=== PATIENT | male | born 1955 | race Caucasian/White ===

== ENCOUNTER 2016-06-21 11:56 | Inpatient (IN) | payer OTHER ==
[~2016-06-21] VITALS: Ht 172.7 cm; Wt 71.2 kg
--- NOTE | ~2016-06-21 | CON ---
[place], [place] REPORT OF CONSULTATION NAME: MILAGROS [facility]UNDO [id number] UNIT #: [id number] ROOM: 517 DOCTOR: ARLEY JACK MD BIRTHDATE: [birth year] DOS: 06/21/2016 CARDIOLOGY CONSULTATION REASON FOR CONSULTATION: Chest pain, syncope and dilated cardiomyopathy. HISTORY OF PRESENT ILLNESS: The patient is a 61-year-old man who does have at least a 10-year history of multiple drug abuse. He was first evaluated by [facility] in 2013 when he presented with atypical chest pain. A stress test was normal, but an echocardiogram showed mildly impaired left ventricular systolic function. The patient was lost to followup, but was recently hospitalized at [facility] in [place] with pneumonia. His respiratory panel was positive for influenza A H3. He was treated with Tamiflu, but states that he has never felt well since then. He has felt weak and has had a persistent cough. Also, since then he has had several episodes of near syncope. He states that this occurs, especially when he is withdrawing from heroin. He will notice a cramping abdominal sensation which radiates into his chest associated with weakness and severe dyspnea. He will feel like he could pass out and his vision may actually get dim, but he has not yet passed out completely. If he sits down, the symptoms will pass after a while. He denies that this is associated with palpitations, but he does feel heavy in his chest whenever these episodes occur. The patient's most recent echocardiogram done 04/04/2016 did show an ejection fraction estimated to be between 35% and 40% with normal left ventricular wall thickness. He had moderate mitral insufficiency and mild aortic insufficiency, paradoxic septal motion was seen. There is a question of a small patent foramen ovale with right to left shunting. The right ventricular systolic pressure was estimated to be normal, however. The patient has decided that he would like to become clean of the drugs of abuse and therefore came in to the hospital under the [facility]; however, upon admission, he did mention that he was having near syncopal episodes and therefore, Cardiology was requested to assist. PAST MEDICAL HISTORY: Includes: 1. Hypertension. 2. Hyperlipidemia. 3. Atypical chest pain prompting admission 02/2014, treadmill nuclear myocardial perfusion study 03/08/2014 showed ejection fraction 51% with normal perfusion. 4. Echocardiogram on 02/2014, ejection fraction 45%-50% with mildly elevated right ventricular systolic pressures and mild left ventricular hypertrophy. 5. Hospitalization on 04/03/2016 with influenza pneumonia. The patient was also felt to have heart failure due to combined systolic and diastolic dysfunction. ProBNP 7260. 6. Echocardiogram 03/2016, normal left ventricular size and thickness with global hypokinesis and ejection fraction 35%-40%, abnormal septal motion noted, moderate mitral insufficiency with mild aortic insufficiency present. Possible [place], [place] REPORT OF CONSULTATION NAME: MILAGROS RAYMUNDO UNIT #: [id number] ROOM: 517 DOCTOR: ARLEY JACK MD BIRTHDATE: [birth year] small patent foramen ovale noted. 7. Multidrug abuse. The patient has used injectable heroin up until the current admission. He has used cocaine in the past. 8. History of tobacco abuse. 9. Status post hernia repair in the distant past. FAMILY HISTORY: The patient's mother had breast cancer. His father had heart disease, but he is unsure how old the father was at the time of his heart disease. REVIEW OF SYSTEMS: The patient denies diplopia. He has had lightheadedness and near syncope. He denies focal weakness, but is generally weak. He denies nausea or vomiting. He denies fevers, but he states he feels cold all the time. He denies orthopnea or PND. He has had significant peripheral edema and is on furosemide as an outpatient. He denies change in bowel or bladder habits. Denies blood in his stools or urine, but he states that his stools have been dark since he is taking a vitamin containing iron. He denies heat intolerance, but states that he is cold all the time as noted. He denies polydipsia or polyuria. He denies any new skin rashes. The remainder of the review of systems is negative except as noted above. SOCIAL HISTORY: The patient admits that he is severely depressed and he states that he takes drugs because of this. He does smoke about 1/4 pack of cigarettes a day. He does drink alcohol occasionally. MEDICATIONS PRIOR TO ADMISSION: Albuterol 2 puffs q. 6 hours, Dulera 2 puffs q. 12 hours, fluticasone nasal spray daily, aspirin 81 mg daily, Benadryl 25 mg q. 8 hours p.r.n., iron sulfate 325 mg b.i.d., furosemide 40 mg daily, ibuprofen 200 mg p.r.n., and metoprolol 50 mg daily. ALLERGIES: The patient has no known drug allergies. PHYSICAL EXAMINATION: GENERAL: The patient is a well-nourished white male who looks older than his stated age. VITAL SIGNS: Pulse is 95 and regular, blood pressure is 147/80. He is afebrile. He weighs 69.9 kilograms with a body mass index of 23.4. HEENT: Normocephalic, atraumatic. Extraocular muscles are intact. Sclerae are clear. He has no scleral icterus or scleral hemorrhages. Pupils are equal, round and reactive to light. The oral mucosa is moist. Tongue is midline. NECK: Supple. He has no jugular distention. He does have hepatojugular reflux, however. Carotids are full. I heard no bruits. He had no neck or supraclavicular masses. No thyromegaly. Respirations are unlabored. He does have decreased breath sounds at the bases, but no wheezes or rales. He has no presacral edema or chest wall tenderness. CARDIOVASCULAR: His heart has a regular rhythm. He has an S4 gallop. I did not hear an S3. The PMI however, is displaced laterally. There is no precordial heave, lift or thrill. He did not have any obvious murmurs. ABDOMEN: Soft and normally active without masses, organomegaly or bruits. EXTREMITIES: Showed 2+ edema at the ankles to the mid calf. Pedal pulses were [place], [place] REPORT OF CONSULTATION NAME: MILAGROS RAYMUNDO UNIT #: [id number] ROOM: [facility] DOCTOR: ARLEY JACK MD BIRTHDATE: [birth year] palpable in the feet. I reviewed his electrocardiogram, it shows sinus rhythm with biatrial enlargement. He does have an intraventricular conduction delay consistent with an incomplete right bundle-branch block. He also has left ventricular hypertrophy with secondary ST and T-wave changes. IMPRESSION: 1. History of dilated cardiomyopathy. The patient's most recent echocardiogram on 04/04/2016 showed an ejection fraction of 35%-40% with moderate mitral insufficiency. 2. Ongoing heroin abuse. The patient is admitted to the hospital now to "get clean." 3. Near syncopal episodes. These occur mostly when he is withdrawing from heroin and begin with abdominal pain. It is possible that this represents a vasovagal event. However, given his poor left ventricular function. This could also represent an arrhythmia. 4. History of essential hypertension. 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 We will check orthostatic blood pressures and repeat his echocardiogram to reassess left ventricular function. He will be treated with diuretics, beta-blockers and ELLEN inhibitors for his chronic systolic congestive heart failure. An echocardiogram will be obtained along with a pharmacologic myocardial perfusion study. Further recommendations will depend upon his response to therapy and cardiac evaluation. We thank the hospitalist group for asking our advice regarding his care. ARLEY JACK MD CM:CONSTR:REPORT OF CONSULTATION 1647 06/22/16 0510 interface
--- NOTE | ~2016-06-21 | ST ---
[place], [place] EXERCISE STRESS TEST REPORT NAME[facility]: [id number] UNIT #: [id number] ROOM: 517 DOCTOR: MAGDALENO TORRES MD BIRTHDATE: [birth year] DOS: 06/24/2016 REFERRING PHYSICIAN: Dr. Acosta INDICATION: Chest pain and syncope. The patient underwent standard protocol Lexiscan stress EKG. The patient's baseline EKG is normal sinus with nonspecific ST-T wave changes and occasional PVCs. The patient's baseline heart rate was 90 with a blood pressure 130/82. The patient's peak heart rate was still 100 with a blood pressure 120/88. The patient had no chest pain, no EKG changes. No arrhythmias noted with exception of PVCs. SUMMARY OF FINDINGS: 1. Unremarkable Lexiscan stress EKG. 2. Please see separate report for perfusion scan results. MAGDALENO TORRES MD CM:STRESS:EXERCISE STRESS TEST REPORT [id number] MAGDALENO TORRES MD
--- NOTE | ~2016-06-21 | PR ---
[place], [place] PROGRESS NOTE NAME: MILAGROS RAYMUNDO UNIT #: [id number] ROOM: 517 DOCTOR: AMANDEEP MAGAÑA MD BIRTHDATE: [birth year] DOS: 06/22/2016 REASON FOR VISIT: Cardiomyopathy and valvular heart disease. HISTORY OF PRESENT ILLNESS: The patient is feeling better. Denies any chest pain. His breathing is much better. No dizziness. No PND, no orthopnea, no palpitations. REVIEW OF SYSTEMS: Review of the 8 systems negative except as mentioned above. RHYTHM STRIPS: The patient in sinus rhythm. PHYSICAL EXAMINATION: VITAL SIGNS: Blood pressure 136/88, pulse 60, respiratory rate is 18, weight 69.8 kilos. GENERAL: Alert, comfortable, in no acute distress. HEENT: Head and neck: Pupils are round and equal. No jaundice. NECK: Supple, no distended neck veins, no carotid bruit. CHEST: Symmetrical, nontender. LUNGS: Clear to auscultation bilaterally. HEART: Regular rhythm, no S3. Grade 1/6 systolic murmur. ABDOMEN: Benign, nontender. Bowel sounds normal. EXTREMITIES: Showed trace edema. Distal pulses palpable. SKIN: Warm and dry. No cyanosis, no clubbing. NEUROLOGIC: The patient is alert, oriented. No focal neurologic deficit. IMPRESSION: 1. Syncope, no recurrence. 2. Opiate drug withdrawal. 3. Dilated cardiomyopathy, ejection fraction 35-40%. 4. Mild mitral regurgitation. 5. Hypertension. RECOMMENDATIONS: 1. Blood pressure and heart rate are stable. 2. Continue current medications. 3. Lexiscan stress test Friday to rule out ischemia. 4. Continue current cardiac medications. 5. Risk factor modification discussed. 6. There is no family at bedside at the time of my examination. [place], [place] PROGRESS NOTE NAME: MILAGROS RAYMUNDO UNIT #: [id number] ROOM: 517 DOCTOR: AMANDEEP MAGAÑA MD BIRTHDATE: [birth year] AMANDEEP MAGAÑA MD CM:PNTRANS [id number] AMANDEEP MAGAÑA MD 06/23/16 0011 interface
--- NOTE | ~2016-06-21 | PR ---
[place], [place] PROGRESS NOTE NAME: MILAGROS RAYMUNDO UNIT #: [id number] ROOM: 517 DOCTOR: AMANDEEP MAGAÑA MD BIRTHDATE: [birth year] DOS: 06/23/2016 CARDIOLOGY FOLLOWUP VISIT NOTE REASON FOR VISIT: Cardiomyopathy. HISTORY OF PRESENT ILLNESS: The patient is feeling better. Denies any dizziness, no further syncopal attacks. No PND, no orthopnea, no palpitations, no fever and chills. No nausea, vomiting, diarrhea, no chest pains. No edema. REVIEW OF SYSTEMS: Review of the 8 systems as mentioned above. RHYTHM STRIPS: The patient in sinus rhythm. PHYSICAL EXAMINATION: VITAL SIGNS: Blood pressure 117/67, pulse 70, respiratory rate is 18. GENERAL: Alert, comfortable, in no acute distress. HEAD AND NECK: Pupils are round, equal. No jaundice. Tongue was moist and pharynx was clear. NECK: Supple. No distended neck veins. No carotid bruit. CHEST: Symmetrical, nontender. LUNGS: Clear to auscultation bilaterally. HEART: Regular rhythm. No S3. Grade 1/6 systolic murmur. ABDOMEN: Benign, nontender. Bowel sounds normal. EXTREMITIES: Showed trace to 1+ edema. Distal pulses are palpable. SKIN: Warm and dry. No cyanosis, no clubbing. NEUROLOGIC: The patient is alert, oriented. No focal neurologic deficit. IMPRESSION: 1. Cardiomyopathy with ejection fraction 35 to 40%, no acute congestive heart failure. 2. Syncope, details unknown, possible drug withdrawal. 3. Hypertension, stable. 4. Mild mitral regurgitation, stable. RECOMMENDATIONS: 1. Continue current medications. 2. Lexiscan stress test tomorrow to rule out ischemia due to his symptoms and cardiomyopathy. 3. Risk factor modification for compliance with medications, diet and also to quit using drugs discussed. [place], [place] PROGRESS NOTE NAME: MILAGROS RAYMUNDO UNIT #: [id number] ROOM: 517 DOCTOR: AMANDEEP MAGAÑA MD BIRTHDATE: [birth year] AMANDEEP MAGAÑA MD CM:PNTRANS [id number] AMANDEEP MAGAÑA MD 06/24/16 0000 interface
--- NOTE | ~2016-06-21 | EKG ---
[place], [place] ELECTROCARDIOGRAM REPORT NAME: MILAGROS RAYMUNDO UNIT #: [id number] ROOM: [facility] DOCTOR: ARLEY JACK MD BIRTHDATE: [birth year] DOS: 06/21/2016 TIME: 16:32. Normal sinus rhythm, left atrial enlargement, left ventricular hypertrophy with secondary ST and T wave changes, nonspecific intraventricular conduction delay, abnormal electrocardiogram. ARLEY JACK MD CM:EKGRPT:ELECTROCARDIOGRAM REPORT 14 44 ARLEY JACK MD
[2016-06-21 13:26] VITALS: BP 131/85
[2016-06-21 14:18] LABS: BASO # 0.1 10*3/uL (0.0-0.1); BASO % 0.9 % (0.0-1.0); EOS # 0.3 10*3/uL (0.0-0.4); EOS % 3.7 % (1.0-4.0); HEMATOCRIT 35.6 % (42.0-52.0); HEMOGLOBIN 11.1 g/dl (14.0-18.0); LYMPH # 2.4 10*3/uL (1.3-4.4); LYMPH % 26.1 % (27.0-41.0); MEAN CELL VOLUME 80.7 fl (80.0-94.0); MEAN CORPUSCULAR HGB 25.2 pg (27.0-31.0); MEAN CORPUSCULAR HGB CONC 31.2 g/dl (33.0-37.0); MEAN PLATELET VOLUME 9.5 fl (9.6-12.3); MONO # 0.5 10*3/uL (0.1-1.0); MONO % 5.7 % (3.0-9.0); NEUT # 5.9 10*3/uL (2.3-7.9); NEUT % 63.3 % (47.0-73.0); PLATELET COUNT AUTOMATED 315 10*3/uL (130-400); RED BLOOD COUNT 4.41 10*6/uL (4.50-5.90); RED CELL DISTRI WIDTH 16.3 % (0-14.5); WHITE BLOOD COUNT 9.3 10*3/uL (4.8-10.8)
[2016-06-21 14:27] LABS: PROTHROMBIN TIME 10.3 SECONDS (9.0-12.4)
[2016-06-21 14:33] LABS: ALBUMIN 3.5 gm/dl (3.1-4.5); ALKALINE PHOSPHATASE 69 U/L (45-117); BILIRUBIN, TOTAL 0.6 mg/dl (0.2-1.0); BUN 14 mg/dl (7-24); CARBON DIOXIDE 29 mmol/L (21-32); CHLORIDE 100 mmol/L (98-107); EST GLOM FILT AFRICAN AMERICAN > 60 ml/min; GLUCOSE 87 mg/dL (65-99); POTASSIUM 4.1 mmol/L (3.5-5.1); SGOT/AST 15 IU/L (3-35); SGPT/ALT 19 U/L (12-78); SODIUM 137 mmol/L (136-145); TOTAL PROTEIN 7.4 gm/dL (6.4-8.2)
[2016-06-21 16:00] VITALS: BP 147/81
[2016-06-21] MEDS ORDERED: VENTOLIN H0.09 MG/AC INH (16:34)
[2016-06-21] MEDS ORDERED: IBUPROFEN IB200 M1 PO (16:36)
[2016-06-21] MEDS ORDERED: DULE1ARO INH (16:37)
[2016-06-21] MEDS ORDERED: BENADRYL25 M2 PO (16:37)
[2016-06-21] MEDS ORDERED: FLUTICASON0.05 MG/AC NAS (16:38)
[2016-06-21] MEDS ORDERED: ASPIRIN ADULT L81 M1 PO (16:39)
[2016-06-21] MEDS ORDERED: FERROUS SULFAT325 MG PO (16:41)
[2016-06-21] MEDS ORDERED: METOPROLOL SUCC50 M1 PO (16:42)
[2016-06-21] MEDS ORDERED: LASIX40 MG PO (16:42)
[2016-06-21] MEDS ORDERED: LISINOPRIL10 M1 PO (16:43)
[2016-06-21 17:24] LABS: BILIRUBIN NEGATIVE (NEGATIVE); BLOOD TRACE-INTACT (NEGATIVE); CLARITY CLEAR (CLEAR); COLOR YELLOW (YELLOW); GLUCOSE NEGATIVE (NEGATIVE); KETONE NEGATIVE (NEGATIVE); LEUKO ESTERASE TRACE (NEGATIVE); NITRITE NEGATIVE (NEGATIVE); PH 6.5 (5.0-9.0); PROTEIN NEGATIVE (NEGATIVE); SPECIFIC GRAVITY <= 1.005 (1.005-1.030); UROBILINOGEN 0.2 E.U./dl (0.2-1.0)
[2016-06-21 17:33] LABS: URINE AMPHETAMINES < 1000 (1000ng/ml); URINE BARBITURATES < 200 (200ng/ml); URINE COCAINE < 300 (300ng/ml)
[2016-06-21 17:44] LABS: BACTERIA TRACE; RBC 0-2 rbc/hpf (0-2); URINE REFLEX COMMENT YES (NO)
[2016-06-21 20:00] VITALS: BP 127/90
[2016-06-22] VITALS: BP 120/79
[2016-06-22 08:00] VITALS: BP 130/88
[2016-06-22 12:00] VITALS: BP 112/46
[2016-06-22 16:00] VITALS: BP 130/80
[2016-06-22 20:00] VITALS: BP 125/84
[2016-06-23] VITALS: BP 103/72
[2016-06-23 08:00] VITALS: BP 136/86
[2016-06-23 12:00] VITALS: BP 117/67
[2016-06-23 16:00] VITALS: BP 120/70
[2016-06-23 20:00] VITALS: BP 118/81
[2016-06-24] VITALS: BP 116/75
[2016-06-24 08:00] VITALS: BP 124/78
[2016-06-24 12:00] VITALS: BP 128/90
[2016-06-24 16:00] VITALS: BP 126/70
[2016-06-24 20:00] VITALS: BP 125/77
[2016-06-25] VITALS: BP 130/84
[2016-06-25 06:49] LABS: BASO # 0.1 10*3/uL (0.0-0.1); BASO % 1.4 % (0.0-1.0); EOS # 0.5 10*3/uL (0.0-0.4); EOS % 5.9 % (1.0-4.0); HEMATOCRIT 37.6 % (42.0-52.0); HEMOGLOBIN 11.8 g/dl (14.0-18.0); LYMPH # 2.6 10*3/uL (1.3-4.4); LYMPH % 33.1 % (27.0-41.0); MEAN CELL VOLUME 80.3 fl (80.0-94.0); MEAN CORPUSCULAR HGB 25.2 pg (27.0-31.0); MEAN CORPUSCULAR HGB CONC 31.4 g/dl (33.0-37.0); MEAN PLATELET VOLUME 9.9 fl (9.6-12.3); MONO # 0.5 10*3/uL (0.1-1.0); MONO % 6.4 % (3.0-9.0); NEUT # 4.2 10*3/uL (2.3-7.9); NEUT % 53.1 % (47.0-73.0); PLATELET COUNT AUTOMATED 318 10*3/uL (130-400); RED BLOOD COUNT 4.68 10*6/uL (4.50-5.90); RED CELL DISTRI WIDTH 16.3 % (0-14.5); WHITE BLOOD COUNT 7.8 10*3/uL (4.8-10.8)
[2016-06-25 07:24] LABS: BUN 12 mg/dl (7-24); EST GLOM FILT AFRICAN AMERICAN > 60 ml/min
[2016-06-25 08:00] VITALS: BP 136/92
[2016-06-25] MEDS ORDERED: FUROSEMIDE20 M1 PO (11:22)
[2016-06-25] MEDS ORDERED: ATARAX,VISTARIL50 MG PO (11:22)
[2016-06-25] MEDS ORDERED: IBU800 M1 PO (11:22)
[2016-06-25] MEDS ORDERED: LISINOPRIL20 MG PO (11:22)
[2016-06-25] MEDS ORDERED: TOPROL XL50 M1 PO (11:22)
[2016-06-25] MEDS ORDERED: ZOFRAN 4 MG ED2 TAB PO (11:22)
[2016-06-25 12:00] VITALS: BP 135/87
== END 2016-06-25 14:55 | disposition home or self-care (01) | DRG 897 ==
LOC: 5E 11:56
PROVIDERS: Internal Medicine
PROC: 4A02XM4 Measurement of Cardiac Total Activity, External Approach (ICD-10-PCS; principal; 2016-06-24)
PROC: 3E073KZ Introduction of Other Diagnostic Substance into Coronary Artery, Percutaneous Approach (ICD-10-PCS; 2016-06-24)
DX: F11.23 Opioid dependence with withdrawal (principal); I42.0 Dilated cardiomyopathy; I11.0 Hypertensive heart disease with heart failure; I50.22 Chronic systolic (congestive) heart failure; L02.414 Cutaneous abscess of left upper limb; L02.413 Cutaneous abscess of right upper limb; L03.114 Cellulitis of left upper limb; L03.113 Cellulitis of right upper limb; I34.0 Nonrheumatic mitral (valve) insufficiency; E78.5 Hyperlipidemia, unspecified; D64.9 Anemia, unspecified; Z87.891 Personal history of nicotine dependence; Z82.49 Family history of ischemic heart disease and other diseases of the circulatory system; Z80.1 Family history of malignant neoplasm of trachea, bronchus and lung; Z80.3 Family history of malignant neoplasm of breast; Z79.1 Long term (current) use of non-steroidal anti-inflammatories (NSAID); Z79.82 Long term (current) use of aspirin; Z79.899 Other long term (current) drug therapy